=== PATIENT | female | born 1995 | race African-American/Black ===

== ENCOUNTER 2016-10-17 03:25 | Emergency (ER) | payer SELFPAY ==
[~2016-10-17] VITALS: Ht 167.6 cm; Wt 65.0 kg
[2016-10-17] MEDS ORDERED: KETOROLAC 30MG/ML VIAL IV STA (03:57)
[2016-10-17 06:47] VITALS: BP 129/72
== END 2016-10-17 06:47 | disposition home or self-care (01) ==
LOC: ER 03:40
DX: S82.145A Nondisplaced bicondylar fracture of left tibia, initial encounter for closed fracture (principal); V03.19XA Pedestrian with other conveyance injured in collision with car, pick-up truck or van in traffic accident, initial encounter; Y93.89 Activity, other specified; Y92.488 Other paved roadways as the place of occurrence of the external cause
CPT/HCPCS: 73552; 73560; 73590; 73700; 96374; 99284; J1885; L1830